=== PATIENT | male | born 2005 | race Hispanic/Latino ===

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

== ENCOUNTER 2024-06-18 01:23 | Emergency (ER) | payer SELFPAY ==
[~2024-06-18] VITALS: Ht 157.5 cm; Wt 67.1 kg
[~2024-06-18 01:23] MED LIST: TAMS-1 PO; TRAM50TA4 PO
--- NOTE | 2024-06-18 01:39 | ERN ---
General Chief Complaint: Back Pain-No Injury Stated Complaint: C/O LEFT LOWER BACK; Time Seen by MD: 01:26 History of Present Illness Initial Comments Patient comes in with complaint of left low back pain with nausea and vomiting. No diarrhea. No injury. It started several hours ago. Feels similar to a previous kidney stone that he had several months ago. No hematuria. Allergies: Coded Allergies: No Known Allergies (Unverified Allergy, Unknown, 03/06/24) Home Meds Active Scripts Tramadol Hcl (Tramadol HCl) 50 Mg Tablet, 50 MG PO Q6H for 7 Days, #28 TAB Prov:CEZAR CAMPOS MD 03/07/24 Tamsulosin HCl (Flomax) 0.4 Mg Cap.er.24h, 1 CAP PO DAILY for 28 Days, #28 CAP 0 Refills Prov:CEZAR CAMPOS MD 03/07/24 Past Medical History Past Medical History: Other Medical History Other: HX OF KIDNEY STONES Past Surgical History: None ROS Dictation Ten systems reviewed and negative except as noted in HPI Physical Exam Physical Exam Dictation GEN: non toxic, appears uncomfortable HEENT: atrumatic, PERRL, EOMI, conjunctivae normal NECK: Soft supple nontender Heart RRR, no murmurs Chest: No deformity Lungs: Lungs clear to auscultation Ab: Soft nondistended nontender Back: No midline step-offs. No gross deformity. No CVA tenderness : m/s: Moving all four extremities. No gross deformity Neuro: CN 2-12 intact. Moving all four extremities. Psych: Cooperative Results Laboratory and Microbiology Lab and Micro Result Laboratory Tests Test 06/18/24 01:43 06/18/24 03:20 White Blood Count 12.2 K/uL (4.8-10.8) H Red Blood Count 5.56 MIL/uL (4.50-6.20) Hemoglobin 15.7 g/dL (14.0-18.0) Hematocrit 45.1 % (42-54) Mean Corpuscular Volume 81.1 fL (80-100) Mean Corpuscular Hemoglobin 28.2 pg (27.0-33.0) Mean Corpuscular Hemoglobin Concent 34.8 g/dL (32.0-36.0) Red Cell Distribution Width 12.2 % (11.0-15.5) Platelet Count 217 K/uL (130-400) Mean Platelet Volume 11.9 fL (7.5-10.5) H Immature Granulocyte % (Auto) 0.4 % (0-1) Neutrophils (%) (Auto) 87.6 % (40.0-77.0) H Lymphocytes (%) (Auto) 7.7 % (21.0-51.0) L Monocytes (%) (Auto) 3.9 % (3.0-13.0) Eosinophils (%) (Auto) 0.2 % (0.0-8.0) Basophils (%) (Auto) 0.2 % (0.0-5.0) Neutrophils # (Auto) 10.7 K/uL (1.8-7.7) H Lymphocytes # (Auto) 0.9 K/uL (1.0-4.8) L Monocytes # (Auto) 0.5 K/uL (0.1-1.0) Eosinophils # (Auto) 0.02 K/uL (0.00-0.70) Basophils # (Auto) 0.03 K/uL (0.00-0.20) Absolute Immature Granulocyte (auto 0.05 K/uL (0-1) Nucleated Red Blood Cells 0.0 % (0.0-0.19) White Cell Morphology Comment See comments Sodium Level 140 mmol/L (136-145) Potassium Level 4.2 mmol/L (3.5-5.1) Chloride Level 103 mmol/L (101-111) Carbon Dioxide Level 29 mmol/L (21-32) Blood Urea Nitrogen 9 mg/dL (7-18) Creatinine 0.9 mg/dL (0.5-1.3) Glomerular Filtration Rate Calc 126 mL/min (>90) Random Glucose 133 mg/dL (70-105) H Total Calcium 9.1 mg/dL (8.5-10.1) Total Bilirubin 0.6 mg/dL (0.2-1.0) Aspartate Amino Transf (AST/SGOT) 25 U/L (10-37) Alanine Aminotransferase (ALT/SGPT) 33 U/L (12-78) Alkaline Phosphatase 114 U/L (50-136) Total Protein 8.0 g/dL (6.0-8.3) Albumin 4.5 g/dL (3.5-5.0) Urine Color LIGHT-YELLOW (YELLOW) Urine Appearance CLEAR (CLEAR) Urine pH 6.5 (5.0-8.0) Urine Specific [place] 1.016 (1.001-1.031) Urine Protein 20 mg/dL (NEGATIVE) H Urine Glucose (UA) NEGATIVE mg/dL (NEGATIVE) Urine Ketones 10 mg/dL (NEGATIVE) H Urine Occult Blood MODERATE (NEGATIVE) H Urine Nitrate NEGATIVE (NEGATIVE) Urine Bilirubin NEGATIVE mg/dL (NEGATIVE) Urine Urobilinogen 0.2 mg/dL (0.2-1.0) Urine Leukocyte Esterase NEGATIVE Allie/uL Urine RBC 51-100 /HPF (0-1) H Urine WBC 2-5 /HPF (0-1) H Urine Squamous Epithelial Cells RARE /HPF (0-2) Urine Bacteria FEW /HPF (None Seen) EKG/XRAY/US/CT/MRI CT Scan Comment Statrad read: 5 mm irregular calculus present within the left distal ureter with associated mild left hydronephrosis and perinephric stranding. No radiopaque obstructing renal calculi, hydronephrosis or perinephric fluid on the right. A few tiny nonobstructing right renal calculi are present. MDM Patient likely has kidney stone Labs urine noncontrast CT abdomen pelvis Zofran Toradol fluids Patient has left-sided kidney stone. Flomax. Tramadol. zofran follow up with urology ED Course Orders Procedure Category Date Status Time Cbc With Differential LAB 06/18/24 Complete 01:35 Comprehensive LAB 06/18/24 Complete Metabolic Panel 01:35 Urinalysis LAB 06/18/24 Complete W/Microscopic 01:35 Ct Abdomen/Pelvis W/O CT 06/18/24 Taken Contrast 01:35 Ondansetron 4mg Inj PHA 06/18/24 Complete (Zofran 4mg Inj) 02:00 Ketorolac PHA 06/18/24 Complete Tromethamine 15mg/Ml 02:00 0.9%Nacl 1000ml (Ns PHA 06/18/24 Complete 1000ml) 02:00 Ketorolac PHA 06/18/24 Complete Tromethamine 15mg/Ml 03:00 Tamsulosin Hcl PHA 06/18/24 Complete (Flomax) 03:00 Current Medications Medications (Trade) Dose Ordered Sig/Derick Route PRN Reason Start Time Stop Time Status Last Admin Dose Admin Ketorolac Tromethamine (toRADol) 15 mg ONCE ONCE IV 06/18/24 02:00 06/18/24 02:02 DC 06/18/24 01:46 Ketorolac Tromethamine (toRADol) 15 mg ONCE ONCE IV 06/18/24 03:00 06/18/24 03:01 DC 06/18/24 03:02 Ondansetron HCl (zoFRAN 4MG INJ) 4 mg ONCE ONCE IVP 06/18/24 02:00 06/18/24 02:02 DC 06/18/24 01:46 Sodium Chloride 1,000 ml @ 999 mls/hr Q1H1M IV 06/18/24 02:00 06/18/24 02:52 DC 06/18/24 01:46 Tamsulosin HCl (FloMAX) 0.4 mg ONCE ONCE PO 06/18/24 03:00 06/18/24 03:01 DC 06/18/24 03:02 Vital Signs Date Time Temp Pulse Resp B/P (MAP) Pulse Ox O2 Delivery O2 Flow Rate FiO2 06/18/24 01:24 98.6 82 20 151/89 99 Room Air DX & DISP Disposition: Discharge Departure Impression: Primary Impression: Kidney stone on left side Condition: Stable Scripts Tamsulosin HCl (Flomax) 0.4 Mg Cap.er.24h 1 CAP PO DAILY for 30 Days, #30 CAP 0 Refills Prov: CAROLINA OLIVARES MD 06/18/24 Ondansetron (Ondansetron Odt) 4 Mg Tab.rapdis 1 TAB PO Q6HPRN PRN for nausea/vomiting for 4 Days, #16 TAB 0 Refills Prov: CAROLINA OLIVARES MD 06/18/24 Tramadol Hcl (Tramadol HCl) 50 Mg Tablet 50 MG PO TID PRN for PAIN LEVEL 6 TO 10 for 7 Days, #16 TAB 0 Refills Prov: CAROLINA OLIVARES MD 06/18/24 Additional Instructions: Tramadol for pain not relieved with Tylenol or ibuprofen Zofran as needed for nausea and vomiting Flomax as prescribed to help pass kidney stone into help with spasms of the pain Follow up with Urology Return for fever, inability to tolerate oral intake, worsening symptoms or other concerns Referrals: SB ARMIJO (PCP) THALIA WESTON MD urology CAROLINA OLIVARES MD Jun 18, 2024 01:39
[2024-06-18] MEDS: ondanSETRON 4MG INJ IVP ONE (01:46)
[2024-06-18] MEDS: 0.9%NACL 1000ML 1,000 ML IV SCH (01:46)
[2024-06-18] MEDS: ketOROlac 15MG/ML VIAL (15MG/ML) IV ONE ×2 (01:46→03:02)
[2024-06-18 02:03] LABS: BASOPHILS # (AUTO) 0.03 K/uL (0.00-0.20); BASOPHILS % (AUTO) 0.2 % (0.0-5.0); EOSINOPHILS # (AUTO) 0.02 K/uL (0.00-0.70); EOSINOPHILS % (AUTO) 0.2 % (0.0-8.0); HEMATOCRIT 45.1 % (42-54); IMMATURE GRANULOCYTE ABSOLUTE 0.05 K/uL (0-1); LYMPHOCYTES # (AUTO) 0.9 K/uL (1.0-4.8); LYMPHOCYTES % (AUTO) 7.7 % (21.0-51.0); MEAN CORPUSCULAR HEMOGLOBIN 28.2 pg (27.0-33.0); MEAN CORPUSCULAR HGB CONC 34.8 g/dL (32.0-36.0); MEAN CORPUSCULAR VOLUME 81.1 fL (80-100); MONOCYTES # (AUTO) 0.5 K/uL (0.1-1.0); MONOCYTES % (AUTO) 3.9 % (3.0-13.0); NEUTROPHILS # (AUTO) 10.7 K/uL (1.8-7.7); NEUTROPHILS % (AUTO) 87.6 % (40.0-77.0); PLATELET COUNT (AUTO) 217 K/uL (130-400); RED BLOOD CELL COUNT(AUTO) 5.56 MIL/uL (4.50-6.20); RED CELL DISTRIBUTION WIDTH 12.2 % (11.0-15.5); WHITE BLOOD COUNT (AUTO) 12.2 K/uL (4.8-10.8)
[2024-06-18 02:12] LABS: CREATININE 0.9 mg/dL (0.5-1.3); POTASSIUM 4.2 mmol/L (3.5-5.1)
[2024-06-18 02:17] LABS: ALBUMIN 4.5 g/dL (3.5-5.0); BILIRUBIN,TOTAL 0.6 mg/dL (0.2-1.0)
[2024-06-18] MEDS: tamSULOsin HCL 0.4 MG CAP.ER.24H PO ONE (03:02)
[2024-06-18 03:32] LABS: APPEARANCE,URINE CLEAR (CLEAR); BILIRUBIN,URINE NEGATIVE (NEGATIVE); COLOR,URINE LIGHT-YELLOW (YELLOW); GLUCOSE, URINE (UA) NEGATIVE (NEGATIVE); KETONES,URINE 10 mg/dL (NEGATIVE); LEUKOCYTE ESTERASE ,URINE NEGATIVE Leu/uL (NEGATIVE); NITRATE,URINE NEGATIVE (NEGATIVE); OCCULT BLOOD,URINE MODERATE (NEGATIVE); PH,URINE 6.5 (5.0-8.0); PROTEIN,URINE 20 mg/dL (NEGATIVE); UROBILINOGEN,URINE 0.2 mg/dL (0.2-1.0)
[2024-06-18 03:34] LABS: BACTERIA,URINE FEW /HPF (None Seen); MUCUS,URINE MOD LPF (None Seen); RBC,URINE 51-100 /HPF (0-1); SQUAMOUS EPITHELIAL CELL,UR RARE /HPF (0-2)
[2024-06-18] MEDS ORDERED: ONDA-243 PO (03:45)
[2024-06-18] MEDS ORDERED: TAMS-1 PO (03:45)
[2024-06-18] MEDS ORDERED: TRAM50TA4 PO (03:45)
[2024-06-18 04:03] VITALS: BP 138/77; PULSE 85; RESP 18; TEMP 98.6; O2SAT 99
--- NOTE | 2024-06-18 08:28 | HMCIMG ---
CT ABDOMEN/PELVIS W/O CONTRAST REASON: left flank pain COMPARISON: 03/07/2024 FINDINGS: Lung bases are clear. There are no focal liver lesions. Liver does not appear enlarged.. Spleen and pancreas appear unremarkable. The gallbladder appears normal as well. There is moderate left hydronephrosis and hydroureter. There is a 7 mm stone in the distal left ureter within several centimeters of the ureterovesical junction, this has not changed in size or appearance compared to prior study 03/07/2024. There is persistent to ureteral stranding. There is a 2 mm nonobstructing stone lower pole calyx of the left kidney, and a second very small stone in a middle pole calyx. Kidneys appear otherwise normal. Bowel loops appear unremarkable. This includes normal appearance of the appendix There is no evidence of free fluid or intraperitoneal air. There are no focal fluid collections. Aorta and retroperitoneum appear normal as do pelvic soft tissue structures. The anterior abdominal wall is intact. Osseous structures appear unremarkable. IMPRESSION: 1. 7 mm stone in the distal left ureter with moderate hydronephrosis and hydroureter, these findings are unchanged compared to prior study 03/07/2024. 2. 2 very small nonobstructing stones visible in the right kidney, one in the middle pole calyx and one in the lower pole. 3. Otherwise unremarkable noncontrast CT abdomen and pelvis. CT was performed with one or more following dose reduction techniques: automated exposure control, adjustment of the mA and kv according to patient's size, or use of a iterative reconstruction technique.
== END 2024-06-18 04:04 | disposition home or self-care (01) ==
LOC: EDH 01:23
DX: N20.0 Calculus of kidney (principal); Z79.899 Other long term (current) drug therapy
CPT/HCPCS: 99285; 74176; 96374; 96375; 80053; 85025; 81001; 36415; 96376; J1885 ×2; J7030; J2405